=== PATIENT | female | born 1995 | race Two or more races ===

== ENCOUNTER 2016-12-08 06:59 | Emergency (ER) | payer MEDICAID ==
[~2016-12-08] VITALS: Ht 154.9 cm; Wt 47.6 kg
[2016-12-08 07:26] VITALS: BP 125/90
[2016-12-08 08:22] LABS: Urine Mucus FEW (None Seen); Urine RBC 7293 /hpf (0 - 4); Urine Squamous Epithelial Cell MANY /hpf (<5)
[2016-12-08 08:30] LABS: Urine Color RED (Yellow)
[2016-12-08] MEDS ORDERED: cefTRIAXone 1GM/50ML D5W 50 ML IV ONE (09:45)
[2016-12-08] MEDS ORDERED: SODIUM CHLORIDE 0.9% 1,000 ML IV ONE (09:45)
[2016-12-08] MEDS ORDERED: ONDANSETRON HCL 4 MG/2 ML VIAL IV ONE (09:45)
[2016-12-08] MEDS ORDERED: MORPHINE SULF INJ 2 MG/ML SYRINGE 1ML IV ONE (09:45)
[2016-12-08 10:25] LABS: Basophils # (auto) 0 uL; Basophils % (auto) 0.2 % (0.0-2.0); Eosinophils # (auto) 0 uL; Eosinophils % (auto) 0.1 % (0.0-7.0); Hematocrit 33.8 % (36.0-46.0); Hemoglobin 11.1 g/dL (12.2-16.2); Lymphocytes # (auto) 0.5 uL; Lymphocytes % (auto) 8.3 % (10.0-50.0); Mean Corpuscular Hemoglobin 27.7 pg (28.0-32.0); Mean Corpuscular Hgb Conc. 32.7 g/dL (32.0-36.0); Mean Corpuscular Volume 84.9 fL (80.0-100.0); Monocytes # (auto) 0.4 uL; Monocytes % (auto) 6.2 % (0.0-12.0); Neutrophils # (auto) 5.1 uL; Neutrophils % (auto) 85.2 % (37.0-80.0); Platelet Count (auto) 292 10^3/uL (140-450); Red Cell Distribution Width 15.7 % (11.6-16.0)
[2016-12-08 10:37] LABS: BUN/Creatinine Ratio 12.5; Bilirubin, Total 0.3 mg/dL (0.2-1.0); Calcium 8.7 mg/dL (8.5-10.1); Potassium 3.9 mmol/L (3.5-5.1); Total Protein 7.9 g/dL (6.4-8.2)
== END 2016-12-08 11:06 | disposition home or self-care (01) ==
LOC: ER 06:59
DX: N39.0 Urinary tract infection, site not specified (principal)
CPT/HCPCS: 36415; 74176; 80053; 81001; 84702; 85025; 87086; 87088; 87186; 96365; 96375; 99285; J0696; J2270; J2405; J7030

== ENCOUNTER 2019-05-29 05:30 | Emergency (ER) | payer SELFPAY ==
[~2019-05-29] VITALS: Ht 154.9 cm; Wt 51.3 kg
[2019-05-29 05:50] VITALS: BP 111/79
[2019-05-29 06:31] LABS: Urine Bacteria FEW /hpf (None Seen); Urine Blood 1+ /uL (Negative); Urine Mucus FEW (None Seen); Urine Specific Gravity 1.013 (1.001-1.035); Urine WBC 179 /hpf (0 - 5); Urine WBC Clumps PRESENT /hpf (None Seen)
== END 2019-05-29 07:00 | disposition left against medical advice (07) ==
LOC: ER 05:30
DX: R10.30 Lower abdominal pain, unspecified (principal); R30.0 Dysuria; Z53.21 Procedure and treatment not carried out due to patient leaving prior to being seen by health care provider
CPT/HCPCS: 81001; 81025

== ENCOUNTER 2019-06-03 14:16 | Emergency (ER) | payer SELFPAY ==
[~2019-06-03] VITALS: Ht 154.9 cm; Wt 51.3 kg
[2019-06-03 15:15] VITALS: BP 109/63
[2019-06-03 15:39] LABS: Urine Bacteria FEW /hpf (None Seen); Urine Blood TRACE /uL (Negative); Urine Mucus FEW (None Seen); Urine Specific Gravity 1.012 (1.001-1.035); Urine WBC 180 /hpf (0 - 5)
[2019-06-03] MEDS ORDERED: cefTRIAXone SOD 1,000 MG VL IM ONE (16:00)
== END 2019-06-03 16:26 | disposition home or self-care (01) ==
LOC: ER 14:16
DX: N39.0 Urinary tract infection, site not specified (principal)
CPT/HCPCS: 81001; 81025; 96372; 99283; J0696

== ENCOUNTER 2020-03-10 00:09 | Emergency (ER) | payer MEDICAID ==
[~2020-03-10] VITALS: Ht 154.9 cm; Wt 53.5 kg
[2020-03-10 00:22] VITALS: BP 128/77
[2020-03-10 00:42] LABS: Basophils # (auto) 0 10 ^3/uL (0-0.2); Basophils % (auto) 0.4 % (0.0-2.0); Eosinophils # (auto) 0 10 ^3/uL (0-0.8); Eosinophils % (auto) 0.9 % (0.0-7.0); Hematocrit 37.7 % (36.0-46.0); Hemoglobin 12.9 g/dL (12.2-16.2); Lymphocytes # (auto) 1.8 10 ^3/uL (0.4-5.4); Lymphocytes % (auto) 34.9 % (10.0-50.0); Mean Corpuscular Hgb Conc. 34.2 g/dL (32.0-36.0); Mean Corpuscular Volume 87.8 fL (80.0-100.0); Monocytes # (auto) 0.5 10 ^3/uL (0-1.3); Monocytes % (auto) 9.4 % (0.0-12.0); Neutrophils # (auto) 2.8 10 ^3/uL (1.6-8.6); Neutrophils % (auto) 54.4 % (37.0-80.0); Nucleated Red Blood Cells % 0.1 %; Platelet Count (auto) 243 10^3/uL (140-450); Red Blood Cells 4.29 10^6/uL (4.0-5.20); Red Cell Distribution Width 13.5 % (11.8-14.3); White Blood Cell 5.2 10^3/uL (4.4-10.8)
[2020-03-10 00:46] LABS: Urine Bacteria FEW /hpf (None Seen); Urine Blood 3+ /uL (Negative); Urine Mucus FEW (None Seen); Urine Specific Gravity 1.026 (1.001-1.035); Urine WBC 3 /hpf (0 - 5)
[2020-03-10 00:56] LABS: Albumin 3.9 g/dL (3.4-5.0); BUN/Creatinine Ratio 21.3; Potassium 3.5 mmol/L (3.5-5.1)
[2020-03-10 00:58] LABS: Bilirubin, Total 0.3 mg/dL (0.2-1.0); Total Protein 8.1 g/dL (6.4-8.2)
[2020-03-10 01:01] LABS: Alcohol, Urine < 3.0 mg/dL (0-10); Amphetamine Screen, Urine NEGATIVE (NEGATIVE); Barbiturate Scree,Urine NEGATIVE (NEGATIVE); Benzodiazephine Screen, Urine NEGATIVE (NEGATIVE); Cannabinoid Screen, Urine NEGATIVE (NEGATIVE); Cocaine Screen, Urine NEGATIVE (NEGATIVE); Opiate Scree,Urine NEGATIVE (NEGATIVE); Phencyclidine Screen, Urine NEGATIVE (NEGATIVE)
== END 2020-03-10 01:59 | disposition left against medical advice (07) ==
LOC: ER 00:09
DX: N93.9 Abnormal uterine and vaginal bleeding, unspecified (principal); Z53.21 Procedure and treatment not carried out due to patient leaving prior to being seen by health care provider
CPT/HCPCS: 36415; 80053; 80307; 81001; 84702; 85025

== ENCOUNTER 2023-03-22 18:51 | Emergency (ER) | payer MEDICAID ==
[~2023-03-22] VITALS: Ht 154.9 cm; Wt 58.3 kg
[2023-03-22] MEDS ORDERED: ALBUTEROL SULF 2.5 MG/0.5ML(0.5%) NEB SOLN NEB ONE (19:00)
[2023-03-22] MEDS ORDERED: IPRATROPIUM BROM 0.5 MG/2.5ML INH SOL NEB ONE (19:00)
[2023-03-22] MEDS ORDERED: NAPR-1334 PO (20:52)
[2023-03-22 22:02] VITALS: BP 102/67; PULSE 70; RESP 15; TEMP 98.5; O2SAT 96
== END 2023-03-22 22:07 | disposition home or self-care (01) ==
LOC: ER 18:51
DX: S29.012A Strain of muscle and tendon of back wall of thorax, initial encounter (principal); R06.02 Shortness of breath; X50.1XXA Overexertion from prolonged static or awkward postures, initial encounter; Y93.89 Activity, other specified; Y92.098 Other place in other non-institutional residence as the place of occurrence of the external cause; Y99.8 Other external cause status
CPT/HCPCS: 71046; 94640; 99283; J7644

== ENCOUNTER 2023-05-29 10:03 | Emergency (ER) | payer MEDICAID ==
[~2023-05-29] VITALS: Ht 154.9 cm; Wt 56.8 kg
[~2023-05-29 10:03] MED LIST: NAPR-1334 PO
[2023-05-29 10:46] LABS: Urine Bacteria NONE SEEN /hpf (None Seen); Urine Blood 2+ /uL (Negative); Urine Clarity HAZY (Clear); Urine Color Yellow (Yellow); Urine Hyaline Cast FEW /lpf (0 - 2); Urine Mucus FEW (None Seen); Urine Protein, UAD 1+ (Negative); Urine Specific Gravity 1.028 (1.001-1.035); Urine Urobilinogen Normal (Negative); Urine WBC 2 /hpf (0 - 5)
[2023-05-29 10:52] LABS: Anion Gap 8 (5-15); Carbon Dioxide 25 mmol/L (20-30); Chloride 105 mmol/L (98-107); Potassium 3.8 mmol/L (3.5-5.1); Sodium 138 mmol/L (136-145)
[2023-05-29 10:53] LABS: Calcium 9.4 mg/dL (8.5-10.1)
[2023-05-29 10:54] LABS: Basophils # (auto) 0 10 ^3/uL (0-0.2); Eosinophils # (auto) 0.1 10 ^3/uL (0-0.8); Hemoglobin 11.3 g/dL (12.2-16.2); Lymphocytes # (auto) 1.2 10 ^3/uL (0.4-5.4); Neutrophils # (auto) 1.7 10 ^3/uL (1.6-8.6); Neutrophils % (auto) 51.8 % (37.0-80.0); White Blood Cell 3.3 10^3/uL (4.4-10.8)
[2023-05-29 10:55] VITALS: BP 109/7; PULSE 92; RESP 18; O2SAT 96
[2023-05-29 10:56] LABS: Basophils % (auto) 1.1 % (0.0-2.0); Eosinophils % (auto) 3.2 % (0.0-7.0); Hematocrit 34.6 % (36.0-46.0); Lymphocytes % (auto) 35.8 % (10.0-50.0); Mean Corpuscular Hemoglobin 25.6 pg (28.0-32.0); Mean Corpuscular Hgb Conc. 32.6 g/dL (32.0-36.0); Mean Corpuscular Volume 78.4 fL (80.0-100.0); Monocytes # (auto) 0.3 10 ^3/uL (0-1.3); Monocytes % (auto) 8.1 % (0.0-12.0); Nucleated Red Blood Cells % 0.1 %; Red Blood Cells 4.41 10^6/uL (4.0-5.20); Red Cell Distribution Width 16.7 % (11.8-14.3)
[2023-05-29 10:58] LABS: BUN/Creatinine Ratio 12.2 (10.0-20.0); Blood Urea Nitrogen 10 mg/dL (9-23); Glucose 84 mg/dL (74-106)
[2023-05-29] MEDS ORDERED: KETOROLAC TROMETH 60MG/2ML VIAL IM ONE (13:00)
[2023-05-29] MEDS: KETOROLAC TROMETH 60MG/2ML VIAL IM ONE ×2 (13:01→13:03)
[2023-05-29] MEDS ORDERED: IBUP-1454 PO (13:02)
== END 2023-05-29 13:14 | disposition home or self-care (01) ==
LOC: ER 10:03
DX: D25.9 Leiomyoma of uterus, unspecified (principal); R10.2 Pelvic and perineal pain
CPT/HCPCS: 36415; 76830; 76856; 80048; 81001; 81025; 85025; 99284; J1885

== ENCOUNTER 2024-09-11 15:14 | Emergency (ER) | payer MEDICAID ==
[~2024-09-11] VITALS: Ht 154.9 cm; Wt 61.4 kg
[~2024-09-11 15:14] MED LIST changes: +CEPH500C PO; +IBUP-1454 PO; -NAPR-1334 PO; +NAPR-1335 PO
[2024-09-11 15:15] VITALS: PULSE 92; RESP 14; O2SAT 99
--- NOTE | 2024-09-11 15:52 | ED.PDOC ---
History of Present Illness HPI Comments 29 y/o F brought in by ambulance presents to the ED for CC of syncope. Per, EMS patient was driving when she began to feel faint and weak; patient pulled over and called emergency medical services. Patient relays, that she is currently 6 weeks and has previously never experienced these symptoms. Patient currently complains of abdominal cramping. Patient denies social history. Patient denies vaginal bleeding, vaginal cramping, hematuria, or dysuria. No other symptoms or modifying factors at this time. Time Seen by MD: 15:20 Primary Care Provider: [facility] Reviewed Notes: Nurses Notes, E Commerce Manager Notes, Medications, Allergies Allergies: Coded Allergies: NO KNOWN ALLERGIES (Unverified , 06/03/19) Home Meds Active Scripts Cephalexin Monohydrate (Cephalexin) 500 Mg Cap, 1 CAP PO QID for 7 Days, #36 CAP 0 Refills Prov:MALLY ORELLANA DISTRICT EXTENSION SERVICE AGENT 04/09/24 Ibuprofen (Ibuprofen) 600 Mg Tab, 1 TAB PO TID, #30 TAB Prov:DAMIÁN NICHOLS 05/29/23 Naproxen Sodium (Naproxen) 220 Mg Tab, 220 MG PO BID PRN for 7 Days, #14 TAB Prov:YOAN AC MD 03/22/23 Information Source: Patient, Emergency Med Personnel Mode of Arrival: EMS Severity: Mild Timing: Hours Duration: Since onset Prehospital treatment: None Past Medical History PAST MEDICAL HISTORY: HTN, UTI'S Surgical History: 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 all 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 Family History Family History: Reviewed,noncontributory to illness Social History Smoker: Non-Smoker Alcohol: Denies ETOH Use Drugs: Denies Drug Use Lives In: Home Constitutional: reports: weakness; denies: chills, diaphoresis, fatigue, fever, malaise, sweats, others EENTM: denies: blurred vision, double vision, ear bleeding, ear discharge, ear drainage, ear pain, ear ringing, eye pain, eye redness, hearing loss, mouth pain, mouth swelling, nasal discharge, nose bleeding, nose congestion, nose pain, photophobia, tearing, throat pain, throat swelling, voice changes, others Respiratory: denies: cough, hemoptysis, orthopnea, SOB at rest, shortness of breath, SOB with excertion, stridor, wheezing, others Cardiovascular: denies: chest pain, dizzy spells, diaphoresis, Dyspnea on e xertion, edema, irregular heart beat, left arm pain, lightheadedness, palpitations, PND, syncope, others Gastrointestinal: reports: abdominal pain; denies: abdomen distended, blood streaked bowels, constipated, diarrhea, dysphagia, difficulty swallowing, hematemesis, melena, nausea, poor appetite, poor fluid intake, rectal bleeding, rectal pain, vomiting, others Genitourinary: denies: abnormal vagina bleeding, burning, dyspareunia, dysuria, flank pain, frequency, hematuria, incontinence, pain, , vagina discharge, urgency, others Neurological: denies: dizziness, fainting, headache, left sided numbness, left sided weakness, numbness, paresthesia, pre-existing deficit, right sided numbness, right sided weakness, seizure, speech problems, tingling, tremors, weakness, others Musculoskeletal: denies: back pain, gout, joint pain, joint swelling, muscle pain, muscle stiffness, neck pain, others Integumetry: denies: bruises, change in color, change in hair/nails, dryness, laceration, lesions, lumps, rash, wounds, others Allergic/Immunocompromised: denies: Difficulty Healing, Frequent Infections, Hives, Itching, others Hematologic/Lymphatic: denies: anemia, blood clots, easy bleeding, easy bruising, swollen glands, others Endocrine: denies: excessive hunger, excessive sweating, excessive thirst, excessive urination, flushing, intolerance to cold, intolerance to heat, unexplained weight gain, unexplained weight loss, others Psychiatric: denies: anxiety, bipolar disorder, depression, hopeless, panic disorder, schizophrenia, sleepless, suicidal, others All Other Systems: Reviewed and Negative Physical Exam General Appearance: Moderate Distress HEENT: Normal ENT Inspection, Pharynx Normal, TMs Normal Neck: Full Range of Motion, Non-Tender, Normal, Normal Inspection Respiratory: Chest Non-Tender, Lungs Clear, No Accessory Muscle Use, No Respiratory Distress, Normal Breath Sounds Cardiovascular: No Edema, No JVD, No Murmur, No Gallop, Normal Peripheral Pulses, Regular Rate/Rhythm Breast Exam: Deferred Gastrointestinal: No Organomegaly, Non Tender, No Pulsatile Mass, Normal Bowel Sounds, Soft Genitalia: Deferred Pelvic: Deferred Rectal: Deferred Extremities: No calf tenderness, Normal capillary refill, Normal inspection, Normal range of motion, Non-tender, No pedal edema Musculoskeletal : Apperance: Normal Neurologic: Alert, rn ante partum II-XII nml as Tested, No Motor Deficits, Normal Affect, Normal Mood, No Sensory Deficits Cerebellar Function: Normal Reflexes: Normal Skin: Dry, Normal Color, Warm Peripheral Pulses: 3+ Radial (R), 3+ Radial (L) Lymphatic: No Adenopathy Was a procedure done? Was a procedure done?: No Differential Dx Considerations may include: Anemia Electrolyte imbalance X-Ray, Labs, Meds, VS Vital Signs Date Time Temp Pulse Resp B/P (MAP) Pulse Ox O2 Delivery O2 Flow Rate FiO2 09/11/24 16:57 92 14 107/64 (78) 99 09/11/24 15:27 88 09/11/24 15:15 98.1 95 12 120/85 (97) 99 09/11/24 15:15 92 14 99 Room Air* 0 21 Lab Test 09/11/24 16:04 09/11/24 16:00 Range/Units Beta HCG, Quantitative 52041.2 H 1.5-4.2 mIU/mL Urine Color Yellow Yellow Urine Clarity Turbid H Clear Urine pH 6.5 5.0-9.0 Urine Specific [place] 1.028 1.001-1.035 Urine Protein 1+ H Negative Urine Ketones 3+ H Negative Urine Blood Negative Negative /uL Urine Nitrite Negative Negative Urine Bilirubin Negative Negative Urine Urobilinogen Normal Negative mg/dL Urine Leukocyte Esterase Negative Negative /uL Urine RBC 2 0 - 4 /hpf Urine Microscopic WBC 5 0-5 /HPF Urine Squamous Epithelial Cells Few <5 /hpf Urine Bacteria Mod H None Seen /hpf Urine Mucus Few None Seen Urine Glucose Normal Normal mg/dL Current Medications Medications (Trade) Dose Ordered Sig/Inez Route Start Time Stop Time Status Last Admin Sodium Chloride 1,000 ml @ 1,000 mls/hr Q1H ONCE IV 09/11/24 15:45 09/11/24 16:44 DC 09/11/24 16:39 Patient alert. Came in for abdominal cramping. She is . Vitals stable. Answering all questions. Denies vaginal bleeding. No sign distress. Ambulating. Ultrasound reviewed does not show any acute changes. Explained to the patient. Was told to follow up with her OBGYN. Was told follow up with her primary care physician. Was told to come back if there is any problem. Time of 1ST Reevaluation: 15:50 Reevaluation 1ST: Improved Patient Education/Counseling: Diagnosis, Treatment Family Education/Counseling: No Family Present Departure 1 Departure Time of Disposition: 16:06 Impression: Primary Impression: Normal Qualified Codes: Z34.90 - Encounter for supervision of normal , unspecified, unspecified trimester Additional Impression: Dehydration Disposition: 01 HOME / SELF CARE / HOMELESS Condition: Good Discharged With: Self Critical Care Note Critical Care Time?: No Stability Stability form required: No Heart Score Heart Score: Heart Score Response (Comments) Value History N/A 0 EKG N/A 0 Age N/A 0 Risk Factors N/A 0 Troponin N/A 0 Total 0 I personally scribed for MARCEL ROMERO MD ([email or web address]) on 09/11/24 at 15:52. Electronically submitted by Rachel Sanchez ([email or web address]). MARCEL ROMERO MD Sep 11, 2024 15:52
[2024-09-11] MEDS: SODIUM CHLORIDE 0.9% 1,000 ML IV ONE (16:39)
[2024-09-11 16:57] VITALS: BP 107/64; PULSE 92; RESP 14; O2SAT 99
--- NOTE | 2024-09-11 17:16 | ECG ---
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
[2024-09-11 17:36] LABS: Urine Bacteria MOD /hpf (None Seen); Urine Blood Negative /uL (Negative); Urine Clarity Turbid (Clear); Urine Color Yellow (Yellow); Urine Mucus FEW (None Seen); Urine Protein, UAD 1+ (Negative); Urine Specific Gravity 1.028 (1.001-1.035); Urine Squamous Epithelial Cell FEW /hpf (<5); Urine Urobilinogen Normal (Negative); Urine WBC 5 /HPF (0-5); Urine pH 6.5 (5.0-9.0)
--- NOTE | 2024-09-11 17:38 | DVH ---
EXAM: US OB ULTRASOUND COMP GTR 14 WKS CLINICAL HISTORY: cramping COMPARISON: None TECHNIQUE: Grayscale, color-flow Doppler, and spectral Doppler ultrasound of the pelvis is performed by transabdominal technique. Findings: Single live intrauterine in vertex presentation with heart rate of 153 bpm. Cervical os appears closed and measures 3.8 cm in length. Placenta is anterior in location without evidence of previa or abruption. Limited evaluation of anatomy. Estimated gestational age 25 weeks 5 days based on parameters which include biparietal diameter 6.4 cm, head circumference 24.2 cm, abdominal circumference 20.5 cm, and femur length 4.[address] ratios within normal limits. Estimated weight 801.6 g (1 lb 12 oz). Impression: 1. Single live intrauterine in vertex presentation with heart rate of 153 bpm. 2. Estimated gestational age 25 weeks 5 days with estimated date of confinement 12/20/2024.
== END 2024-09-11 18:24 | disposition home or self-care (01) ==
LOC: EDUNIT# 15:14 → ER 15:14 → EDBD 15:14 → ER 18:24
DX: Z34.90 Encounter for supervision of normal pregnancy, unspecified, unspecified trimester (principal); Z79.899 Other long term (current) drug therapy
CPT/HCPCS: 36415; 76805; 81001; 84702; 93005; 96360; 99284; J7030

== ENCOUNTER 2025-04-09 10:08 | Emergency (ER) | payer MEDICAID ==
[~2025-04-09] VITALS: Ht 154.9 cm; Wt 53.0 kg
[2025-04-09 10:09] VITALS: BP 103/66; PULSE 98; RESP 16; TEMP 98.2; O2SAT 76
--- NOTE | 2025-04-09 10:35 | ED.PDOC ---
Musculoskeletal HPI Comments 30 year old female with a past medical history of HTN presents to the emergency department with a chief compliant of RT 5th toe pain onset 4 days. Patient states she hit Rt 5th toe on the wall 4 days ago, since then has been experiencing pain and swelling. Currently rates pain 5/10. Patient is able to ambulate. No other symptoms or modifying factors present at this time. Denies previous surgeries to the foot Denies fever chills night sweats nausea vomiting Denies numbness/tingling Chief Complaint: Lower Extremity Time Seen by MD: 10:20 Primary Care Provider: [facility] Reviewed Notes: Medications, Allergies Allergies: Coded Allergies: NO KNOWN ALLERGIES (Unverified , 06/03/19) Home Meds Active Scripts Cephalexin Monohydrate (Cephalexin) 500 Mg Cap, 1 CAP PO QID for 7 Days, #36 CAP 0 Refills Prov:MALLY ORELLANA EMISSION SPECIALIST 04/09/24 Ibuprofen (Ibuprofen) 600 Mg Tab, 1 TAB PO TID, #30 TAB Prov:DAMIÁN NICHOLS 05/29/23 Naproxen Sodium (Naproxen) 220 Mg Tab, 220 MG PO BID PRN for 7 Days, #14 TAB Prov:YOAN AC MD 03/22/23 Information Source: Patient Mode of Arrival: Ambulatory Location: Right Extremity Location: Little Toe Timing: Days Prehospital treatment: None Severity: Moderate Able to Move Extremity: Yes Bear Weight: Limited Pain: Moderate Mechanism: Blunt Trauma Onset of Symptoms: After Trauma Symptoms: Swelling, Pain DVT Risk Factors: NONE Past Medical History PAST MEDICAL HISTORY: HTN, UTI'S Surgical History: Denies all surgeries 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 Family History Family History: Reviewed,noncontributory to illness Social History Smoker: Non-Smoker Alcohol: Denies ETOH Use Drugs: Denies Drug Use Lives In: Home All Other Systems: Reviewed and Negative (as per HPI) Physical Exam General Appearance: Normal HEENT: Normal ENT Inspection, Pharynx Normal, TMs Normal Neck: Full Range of Motion, Non-Tender, Normal, Normal Inspection Respiratory: Chest Non-Tender, Lungs Clear, No Accessory Muscle Use, No Respi ratory Distress, Normal Breath Sounds Cardiovascular: No Edema, No JVD, No Murmur, No Gallop, Normal Peripheral Pulses, Regular Rate/Rhythm Breast Exam: Deferred Gastrointestinal: No Organomegaly, Non Tender, No Pulsatile Mass, Normal Bowel Sounds, Soft Genitalia: Deferred Pelvic: Deferred Rectal: Deferred Extremities: No calf tenderness, Normal capillary refill, Non-tender, No pedal edema Musculoskeletal : Location: Right Extremity Location: Little Toe (pain with flexion, cap refill less than 3 seconds ) Apperance: Normal Neurologic: Alert, database development project manager II-XII nml as Tested, No Motor Deficits, Normal Affect, Normal Mood, No Sensory Deficits Cerebellar Function: Normal Reflexes: Normal Skin: Dry, Normal Color, Warm Lymphatic: No Adenopathy Was a procedure done? Was a procedure done?: No Differential Diagnosis EXT Differential Diagnosis: Fracture, Sprain X-Ray, Labs, Meds, VS Vital Signs Date Time Temp Pulse Resp B/P (MAP) Pulse Ox O2 Delivery O2 Flow Rate FiO2 04/09/25 10:09 98.2 98 16 103/66 76 98.2 [place] [id number] Ph: [phone] DIAGNOSTIC IMAGING Diagnostic Imaging Report : [id number] Signed PATIENT: JUAN SIMEON ACCT: [id number] UNIT: [id number] : 1995 LOC: ER ROOM / BED: / AGE / SEX: 30 / F ADM STATUS: REG ER SERVICE 1014 ORDERING PHYSICIAN: MALLY ORELLANA NP PROCEDURE(s): RFOOT - R FOOT 3 VIEW XRAY REASON: RIGHT 5TH TOE INJURY ORDER NUMBER(s): [id number], ACCESSION NUMBER(s): [id number] CLINICAL INDICATION: RIGHT 5TH TOE TRAUMA TECHNIQUE: 3 radiographic views of the right foot were obtained. Comparison: None FINDINGS/IMPRESSION: There is no evidence of acute fracture or dislocation. The visualized joint space is well maintained. The alignment is anatomical. There is no radiopaque foreign body. ATED BY: ADRIANNE ZULUAGA MD DICTATED DATE/TIME: 04/09/251041 SIGNED BY: ADRIANNE ZULUAGA MD SIGNED DATE/TIME: 04/09/251041 CC: X-Ray, Labs, Meds, VS Comment 30 year old female with a past medical history of HTN presents to the emergency department with a chief compliant of RT 5th toe pain onset 4 days. Patient arrives alert and oriented, ABC's intact, afebrile, vital signs stable, saturating well in room air Diagnostic imaging ordered by me and results interpreted by radiology : XY R FOOT 3 VIEW; IMPRESSION: There is no evidence of acute fracture or dislocation. The visualized joint space is well maintained. The alignment is anatomical. There is no radiopaque foreign body. History and examination consistent w/ sprain X-rays ordered, read by radiologist and reviewed by me. Imaging shows no acute findings There are no signs of arterial or nerve damage Take IBU or OTC Tylenol w/ food as needed for pain Recommended heat therapy Reviewed RICE management Avoid heavy lifting or strenuous activity Recommended range of motion exercises and limit heavy activity for 1 week If no improvement advised patient to return to the emergency department for follow-up. Discussed possibility of a occult fracture Additional MDM Review of External, Non-ED records: External records reviewed. Discussion with independent historian (EMS, family) history obtained from the patient/parents (if applicable) at bedside Chronic conditions affecting care: HTN Social determinants of health affecting care: None I considered escalation of care to admission for this patient, however given the reassuring workup, the patient is safe for outpatient management. On reevaluation, patient had symptomatic improvement. Patient is stable for discharge at this time. External notes reviewed. Test results and diagnostic imaging interpreted. All diagnostic findings, discharge care, education and instructions provided Follow-up with PCP in 2 to 3 days Patient verbalized understanding and agreed to treatment plan Vital signs stable, afebrile, no acute distress noted Patient ambulatory with strong steady gait Advised to return precautions for any new or worsening symptoms, return to ER immediately for re-evaluation Patient is aware that the purpose of this visit was for an acute medical emergency requiring emergent stabilization. Chronic conditions, including malignancies have not been ruled out. Patient is instructed to follow up with PCP as directed and discharge instructions for continued care and workup. If unable to arrange follow-up, patient is to return to the emergency department for reassessment. Patient (parent or legal guardian if applicable) was given verbal and written discharge instructions and acknowledges understanding. Time of 1ST Reevaluation: 10:50 Reevaluation 1ST: Improved Patient Education/Counseling: Diagnosis, Treatment Family Education/Counseling: No Family Present Departure 1 Departure Time of Disposition: 10:59 Impression: Primary Impression: Sprain of toe, fifth, left Qualified Codes: S93.505A - Unspecified sprain of left lesser toe(s), initial encounter Disposition: HOME / SELF CARE / HOMELESS Condition: Stable Discharged With: Self Critical Care Note Critical Care Time?: No Stability Stability form required: No Heart Score Heart Score: Heart Score Response (Comments) Value History N/A 0 EKG N/A 0 Age N/A 0 Risk Factors N/A 0 Troponin N/A 0 Total 0 I personally scribed for MALLY ORELLANA NP ([email or web address]) on 04/09/25 at 10:35. Electronically submitted by Katie Rosa ([email or web address]). I personally scribed for MALLY ORELLANA NP ([email or web address]) on 04/09/25 at 11:08. Electronically submitted by Katie Rosa ([email or web address]). MALLY ORELLANA NP Apr 09, 2025 10:35
--- NOTE | 2025-04-09 10:44 | DVH ---
CLINICAL INDICATION: RIGHT 5TH TOE TRAUMA TECHNIQUE: 3 radiographic views of the right foot were obtained. Comparison: None FINDINGS/IMPRESSION: There is no evidence of acute fracture or dislocation. The visualized joint space is well maintained. The alignment is anatomical. There is no radiopaque foreign body.
== END 2025-04-09 11:16 | disposition home or self-care (01) ==
LOC: ER 10:08
DX: S93.505A Unspecified sprain of left lesser toe(s), initial encounter (principal); I10 Essential (primary) hypertension; Z87.440 Personal history of urinary (tract) infections; Z79.1 Long term (current) use of non-steroidal anti-inflammatories (NSAID); Z79.899 Other long term (current) drug therapy; X58.XXXA Exposure to other specified factors, initial encounter; Y93.89 Activity, other specified; Y92.89 Other specified places as the place of occurrence of the external cause; Y99.8 Other external cause status
CPT/HCPCS: 73630

== ENCOUNTER 2025-06-06 20:42 | Emergency (ER) | payer MEDICAID ==
[~2025-06-06] VITALS: Ht 154.9 cm; Wt 58.0 kg
[2025-06-06] MEDS ORDERED: DIPH25CA66 PO (23:34)
[2025-06-06] MEDS ORDERED: CEPH500C PO (23:34)
[2025-06-06] MEDS ORDERED: PRED10TA PO (23:34)
--- NOTE | 2025-06-06 23:34 | ED.PDOC ---
History of Present Illness(SKN HPI Comments 30-year-old female presents to ER with complaints of spider bite to abdomen x1 day. Patient reports that she was bit by a "brown and black" spider on her left lower abdomen while laying on the ground inside her home at 8 p.m. prior to arrival to ER and has since been experiencing 6/10 pain with associated redness/mild swelling localized to region of spider bite. Patient denies use of medications for current symptoms and presents to ER ambulatory on arrival, steady gait, in no distress with vitals stable. Denies shortness of breath, fever, nausea/vomiting, headache, chest pain or any further symptoms/complaints Chief Complaint: Insect Bite Time Seen by MD: 21:42 Primary Care Provider: [facility] History of Present Illness: Nurses Notes, Medications, Allergies Allergies: Coded Allergies: NO KNOWN ALLERGIES (Unverified , 06/03/19) Home Meds Active Scripts Cephalexin Monohydrate (Cephalexin) 500 Mg Cap, 1 CAP PO BID for 7 Days, #14 CAP 0 Refills Prov:SKYE MONTOYA 06/06/25 Prednisone (Prednisone) 10 Mg Tab, 10 MG PO BID for 5 Days, #10 TAB 0 Refills Prov:SKYE MONTOYA 06/06/25 Diphenhydramine Hcl (Benadryl Allergy) 25 Mg Cap, 2 CAP PO Q6HPRN, #30 CAP 0 Refills Prov:SKYE MONTOYA 06/06/25 Cephalexin Monohydrate (Cephalexin) 500 Mg Cap, 1 CAP PO QID for 7 Days, #36 CAP 0 Refills Prov:MALLY ORELLANA NP 04/09/24 Ibuprofen (Ibuprofen) 600 Mg Tab, 1 TAB PO TID, #30 TAB Prov:DAMIÁN NICHOLS 05/29/23 Naproxen Sodium (Naproxen) 220 Mg Tab, 220 MG PO BID PRN for 7 Days, #14 TAB Prov:YOAN AC MD 03/22/23 Information Source: Patient Mode of Arrival: Ambulatory Tetanus: UTD Past Medical History PAST MEDICAL HISTORY: HTN, UTI'S Surgical History: Denies all surgeries 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 Family History Family History: Unknown Social History Smoker: Non-Smoker Alcohol: Denies ETOH Use Drugs: Denies Drug Use Lives In: Home Constitutional: denies: chills, diaphoresis, fatigue, fever, malaise, sweats, weakness, others EENTM: denies: blurred vision, double vision, ear bleeding, ear discharge, ear drainage, ear pain, ear ringing, eye pain, eye redness, hearing loss, mouth pain, mouth swelling, nasal discharge, nose bleeding, nose congestion, nose pain, photophobia, tearing, throat pain, throat swelling, voice changes, others Respiratory: denies: cough, hemoptysis, orthopnea, SOB at rest, shortness of breath, SOB with excertion, stridor, wheezing, others Cardiovascular: denies: chest pain, dizzy spells, diaphoresis, Dyspnea on exertion, edema, irregular heart beat, left arm pain, lightheadedness, palpitations, PND, syncope, others Gastrointestinal: reports: others (As stated in HPI) Genitourinary: denies: abnormal vagina bleeding, burning, dyspareunia, dysuria, flank pain, frequency, hematuria, incontinence, pain, , vagina discharge, urgency, others Neurological: denies: dizziness, fainting, headache, left sided numbness, left sided weakness, numbness, paresthesia, pre-existing deficit, right sided numbness, right sided weakness, seizure, speech problems, tingling, tremors, weakness, others Musculoskeletal: denies: back pain, gout, joint pain, joint swelling, muscle pain, muscle stiffness, neck pain, others Integumetry: reports: others (As stated in HPI) Allergic/Immunocompromised: denies: Difficulty Healing, Frequent Infections, Hives, Itching, others Hematologic/Lymphatic: denies: anemia, blood clots, easy bleeding, easy bruising, swollen glands, others Endocrine: denies: excessive hunger, excessive sweating, excessive thirst, excessive urination, flushing, intolerance to cold, intolerance to heat, unexplained weight gain, unexplained weight loss, others Psychiatric: denies: anxiety, bipolar disorder, depression, hopeless, panic disorder, schizophrenia, sleepless, suicidal, others Physical Exam General Appearance: No Apparent Distress HEENT: Normal ENT Inspection, PERRL/EOMI, Pharynx Normal, TMs Normal Neck: Full Range of Motion, Non-Tender, Normal Respiratory: Chest Non-Tender, Lungs Clear, No Accessory Muscle Use, No Respiratory Distress, Normal Breath Sounds Cardiovascular: No Murmur, No Gallop, Regular Rate/Rhythm Breast Exam: Deferred Gastrointestinal: No Organomegaly, No Pulsatile Mass, Normal Bowel Sounds, Soft, Other (1 cm papule with mild surrounding erythema/minimal swelling noted to left lower abdomen. No drainage/further skin changes noted) Genitalia: Deferred Pelvic: Deferred Rectal: Deferred Extremities: Normal capillary refill, Normal range of motion Neurologic: Alert, system engineer II-XII nml as Tested, No Motor Deficits, Normal Affect, Normal Mood, No Sensory Deficits Cerebellar Function: Normal Reflexes: Normal Skin: Dry, Normal Color, Warm Peripheral Pulses: 2+ Radial (R), 2+ Radial (L), 2+ Brachial (R), 2+ Brachial (L) Lymphatic: No Adenopathy Was a procedure done? Was a procedure done?: No Sedation Sedation?: No Differential Diagnosis (INTG) Differential Diagnosis: Abrasion Differential Diagnosis: Abscess Differential Diagnosis: Retained Foreign Body X-Ray, Labs, Meds, VS Vital Signs Date Time Temp Pulse Resp B/P (MAP) Pulse Ox O2 Delivery O2 Flow Rate FiO2 06/06/25 20:47 98.5 97 18 123/86 100 98.5 Solu-Medrol 125 mg IM ordered Claritin 10 mg p.o. ordered Tylenol 650 mg p.o. ordered Patient had improvement in symptoms and in no distress prior to discharge Advised to follow up with PCP in 1-2 days Patient verbalized understanding and agreeable with current plan of care Advised to return to ER immediately if symptoms worsen Time of 1ST Reevaluation: 23:12 Reevaluation 1ST: N/A Patient Education/Counseling: Diagnosis, Treatment, Prognosis, Need For Follow Up Family Education/Counseling: No Family Present SEPSIS Sepsis Screen Date sepsis recognized/suspect: Jun 06, 2025 Time Sepsis recognized/suspect: 2051 Recent Procedure: No On Antibiotic Therapy: No Respiratory Rate >20: No Heart Rate >90: No Temp<36 C (96.8 F) or >38.3 C: No SBP <90 or MAP <65 mmHG: No New Acute Mental Status Change: No Is the patient on CPAP, BIPAP,: No Physician Orders Methylprednisolone Sod Succ (Solu Medrol (06/06/25 23:45) Loratadine Tablet (Claritin Tablet) (06/06/25 23:45) Acetaminophen Tablet (Tylenol Tablet) (06/06/25 23:45) Vital Signs Date Time Temp Pulse Resp B/P (MAP) Pulse Ox O2 Delivery O2 Flow Rate FiO2 06/06/25 20:47 98.5 97 18 123/86 100 98.5 Departure 1 Departure Time of Disposition: 23:32 Impression: Primary Impression: Spider bite Qualified Codes: T63.301A - Toxic effect of unspecified spider venom, accidental (unintentional), initial encounter Disposition: HOME / SELF CARE / HOMELESS Condition: Stable e-Prescriptions Cephalexin Monohydrate (Cephalexin) 500 Mg Cap 1 CAP PO BID for 7 Days, #14 CAP 0 Refills Prov: SKYE MONTOAY 06/06/25 Prednisone (Prednisone) 10 Mg Tab 10 MG PO BID for 5 Days, #10 TAB 0 Refills Prov: SKYE MONTOYA 06/06/25 Diphenhydramine Hcl (Benadryl Allergy) 25 Mg Cap 2 CAP PO Q6HPRN, #30 CAP 0 Refills Prov: SKYE MONTOYA 06/06/25 Critical Care Note Critical Care Time?: No Stability Stability form required: No Heart Score Heart Score: Heart Score Response (Comments) Value History N/A 0 EKG N/A 0 Age N/A 0 Risk Factors N/A 0 Troponin N/A 0 Total 0 SKYE MONTOYA Jun 06, 2025 23:34
[2025-06-06 23:39] VITALS: BP 123/86; PULSE 97; RESP 18; TEMP 98.5; O2SAT 100
[2025-06-06] MEDS: LORATADINE 10 MG TAB PO ONE (23:45)
[2025-06-06] MEDS: ACETAMINOPHEN 325 MG TAB PO ONE (23:45)
[2025-06-06] MEDS: methylPREDNISolone SOD SUCC 125 MG/2 ML VL IM ONE (23:47)
== END 2025-06-06 23:55 | disposition home or self-care (01) ==
LOC: ER 20:42
DX: T63.301A Toxic effect of unspecified spider venom, accidental (unintentional), initial encounter (principal); I10 Essential (primary) hypertension; Y92.89 Other specified places as the place of occurrence of the external cause
CPT/HCPCS: 99283; J2919